=== PATIENT | male | born 1980 | race Caucasian/White ===

== ENCOUNTER 2019-04-01 19:18 | Inpatient (IN) | payer MEDICAID ==
[~2019-04-01] VITALS: Ht 177.8 cm; Wt 83.9 kg
[2019-04-01 19:58] VITALS: BP 141/92
[2019-04-01 20:03] LABS: HEMATOCRIT 46.3 % (42.0-54.0); HEMOGLOBIN 16.8 g/dL (13.5-17.5); MCH 30.2 pg (26.0-34.0); MCHC 36.3 g/dL (31.0-37.0); MCV 83.1 fL (80.0-100.0); MEAN PLATELET VOLUME 10.7 fL (7.4-10.4); PLATELET COUNT 343 10x3/uL (130-400); RBC 5.57 10x6/uL (4.20-6.10); RDW 13.6 % (11.5-14.5); WBC 24.3 10x3/uL (4.8-10.8)
[2019-04-01 20:11] LABS: ALBUMIN 3.9 g/dL (3.4-5.0); ALKALINE PHOSPHATASE 125 U/L (46-116); ALT (SGPT) 109 U/L (10-68); BILIRUBIN - TOTAL 2.17 mg/dL (0.2-1.3); CALC OSMOLALITY 288 mosm/kg (275-300); CALCIUM 8.8 mg/dL (8.5-10.1); CARBON DIOXIDE 28.4 mmol/L (21.0-32.0); CHLORIDE - SERUM 105 mmol/L (98-107); CREATININE - SERUM 1.1 mg/dL (0.6-1.3); GLUCOSE 127 mg/dL (74-106); POTASSIUM - SERUM 3.5 mmol/L (3.5-5.1); PROTEIN - SERUM 7.4 g/dL (6.4-8.2); SODIUM 144 mmol/L (136-145); UREA NITROGEN 12 mg/dL (7-18); eGFR NON AFRICAN AMERICAN 79 mL/min (90-120)
[2019-04-01 20:14] LABS: TROPONIN-I < 0.017 ng/mL (0.000-0.060)
[2019-04-01 20:30] LABS: AMYLASE - SERUM 4763 U/L (25-115); LIPASE 18596 U/L (73-393)
[2019-04-01 20:42] VITALS: BP 144/100
[2019-04-01 21:00] LABS: LYMPHOCYTES 7 % (15-50); MONOCYTES 4 % (2-11); NEUTROPHILS 89 % (40-80); PLATELET ESTIMATE NORMAL
[2019-04-01 22:13] VITALS: BP 167/92
--- NOTE | 2019-04-01 22:47 | NUR ---
URINE SENT TO LAB
--- NOTE | 2019-04-01 22:47 | NUR ---
FAMILY CONTACT INFORMATION: ANKITA FLORES: [phone] PARK FLORES: [phone]
[2019-04-01 22:56] LABS: APPEARANCE CLEAR (CLEAR); BILIRUBIN NEGATIVE (NEGATIVE); COLOR YELLOW (YELLOW); GLUCOSE NEGATIVE (NEGATIVE); KETONE NEGATIVE (NEGATIVE); NITRITE NEGATIVE (NEGATIVE); PROTEIN NEGATIVE (NEGATIVE); SPECIFIC GRAVITY 1.005 (1.005-1.020); UROBILINOGEN NORMAL (NORMAL)
[2019-04-02] VITALS (7 sets, daily range): BP systolic 118–195; BP diastolic 67–101; BMI 26.6
[2019-04-02 05:18] LABS: BASOPHILS 0.1 % (0-2); EOSINOPHILS 0 % (0-7); HEMATOCRIT 46.2 % (42.0-54.0); IMMATURE GRANULOCYTES 0.3 % (0-5); LYMPHOCYTES 4.7 % (15-50); MCH 29.5 pg (26.0-34.0); MCHC 34.6 g/dL (31.0-37.0); MCV 85.1 fL (80.0-100.0); MEAN PLATELET VOLUME 11.1 fL (7.4-10.4); NEUTROPHILS 88.9 % (40-80); PLATELET COUNT 270 10x3/uL (130-400); RBC 5.43 10x6/uL (4.20-6.10); WBC 15.6 10x3/uL (4.8-10.8)
[2019-04-02 05:34] LABS: ALBUMIN 3.6 g/dL (3.4-5.0); ALKALINE PHOSPHATASE 115 U/L (46-116); ALT (SGPT) 99 U/L (10-68); BILIRUBIN - TOTAL 0.65 mg/dL (0.2-1.3); CALC OSMOLALITY 283 mosm/kg (275-300); CALCIUM 8.6 mg/dL (8.5-10.1); CARBON DIOXIDE 28.2 mmol/L (21.0-32.0); CHLORIDE - SERUM 105 mmol/L (98-107); GLUCOSE 146 mg/dL (74-106); SODIUM 141 mmol/L (136-145); UREA NITROGEN 12 mg/dL (7-18); eGFR NON AFRICAN AMERICAN 88 mL/min (90-120)
[2019-04-02 05:36] LABS: LIPASE 5380 U/L (73-393)
[2019-04-02 05:39] LABS: AMYLASE - SERUM 1030 U/L (25-115)
--- NOTE | 2019-04-02 08:00 | NUR ---
PT RESTING QUIETLY IN BED. REPORTS PAIN 10/10 AT THIS TIME. PAIN MEDICATION TO BE ADMINISTERED PER MD ORDERS. VOICING ABDOMINAL TENDERNESS AND BELOW RIGHT RIB CAGE. DENIES NAUSEA AT THIS TIME. IV TO LEFT AC WITH NS @ 250ML/HR INFUSING VIA PUMP. SITE WITHOUT REDNESS OR EDEMA. DENIES FURTHER NEEDS AT THIS TIME. CL WITHIN REACH. ENCOURAGED TO CALL WITH NEEDS. CONTINUE POC
[2019-04-02 13:13] LABS: CHOL - HDL RATIO 2.7 ratio (2.3-4.9); LDL-HDL RATIO 1.5 ratio (1.5-3.5)
[2019-04-02 23:51] LABS: UDS - AMPHET NEGATIVE QUAL (NEGATIVE); UDS - BARB NEGATIVE QUAL (NEGATIVE); UDS - BENZO NEGATIVE QUAL (NEGATIVE); UDS - COCAINE NEGATIVE QUAL (NEGATIVE); UDS - OPIATE POSITIVE QUAL (NEGATIVE); UDS - PCP NEGATIVE QUAL (NEGATIVE); UDS - THC POSITIVE QUAL (NEGATIVE)
--- NOTE | 2019-04-03 00:11 | NUR ---
PATIENT IN BED RESTING WITH NO NEEDS NOTED OR STATED AT THIS TIME HE IS ALERT AND ORENTED ABLE TO VOICE NEEDS AND WANTS TO STAFF.REMAINS NPO PER ORDERS. IV TO LEFT AC WITH NS AT 250ML/HR AND DIDAUDID PLASTER MACHINE OPERATOR PER ORDERS.CALL LIGHT IN REACH BED LOW CHECKED OFTEN FOR NEED AND SAFETY.
[2019-04-03 05:29] LABS: BASOPHILS 0.1 % (0-2); EOSINOPHILS 0.2 % (0-7); HEMATOCRIT 41.9 % (42.0-54.0); HEMOGLOBIN 14.3 g/dL (13.5-17.5); IMMATURE GRANULOCYTES 0.4 % (0-5); LYMPHOCYTES 6.1 % (15-50); MCH 29.3 pg (26.0-34.0); MCHC 34.1 g/dL (31.0-37.0); MCV 85.9 fL (80.0-100.0); MEAN PLATELET VOLUME 11.1 fL (7.4-10.4); MONOCYTES 8.6 % (2-11); NEUTROPHILS 84.6 % (40-80); PLATELET COUNT 225 10x3/uL (130-400); RBC 4.88 10x6/uL (4.20-6.10); RDW 13.9 % (11.5-14.5)
[2019-04-03 05:45] VITALS: BP 170/96
[2019-04-03 05:53] LABS: WBC 19.6 10x3/uL (4.8-10.8)
[2019-04-03 06:15] LABS: ALBUMIN 3.1 g/dL (3.4-5.0); ALKALINE PHOSPHATASE 87 U/L (46-116); BILIRUBIN - TOTAL 0.98 mg/dL (0.2-1.3); CALCIUM 8.8 mg/dL (8.5-10.1); CARBON DIOXIDE 27.3 mmol/L (21.0-32.0); CHLORIDE - SERUM 103 mmol/L (98-107); CREATININE - SERUM 0.9 mg/dL (0.6-1.3); LIPASE 1321 U/L (73-393); POTASSIUM - SERUM 4.4 mmol/L (3.5-5.1); PROTEIN - SERUM 6.4 g/dL (6.4-8.2); SODIUM 137 mmol/L (136-145); eGFR NON AFRICAN AMERICAN > 90 mL/min (90-120)
[2019-04-03 06:16] LABS: ALT (SGPT) 53 U/L (10-68); CALC OSMOLALITY 271 mosm/kg (275-300); GLUCOSE 95 mg/dL (74-106); UREA NITROGEN 6 mg/dL (7-18)
[2019-04-03 06:17] LABS: AMYLASE - SERUM 318 U/L (25-115)
--- NOTE | 2019-04-03 08:09 | NUR ---
PT IS RESTING IN BED WITH EYES CLOSED. RESPIRATIONS ARE EVEN AND UNLABORED. PT IS EASILY AROUSED WITH VERBAL STIMULATION. PT REPORTS STEVEN TO ABDOMEN. REGISTRATION SCHEDULING SPECIALIST DILAUDID IS AVAILABLE. PT DENIES PRESENCE OF N/V. BED IS IN THE LOWEST POSITION. CALL LIGHT AND BEDSIDE TABLE ARE WITHIN REACHH. SIDE RAILS X 2. PT DENIES FURTHER NEEDS. WILL CONT TO MONITOR.
--- NOTE | 2019-04-03 09:24 | NUR ---
PT TRANSPORTED FROM ROOM VIA BED BY HOSPITAL STAFF FOR PROCEDURE
[2019-04-03 09:39] VITALS: BP 169/93
--- NOTE | 2019-04-03 13:48 | NUR ---
PT AWAKENING, OPA REMOVED
[2019-04-03 14:52] VITALS: BP 148/86
--- NOTE | 2019-04-03 14:55 | NUR ---
PT ARRIVES TO ROOM VIA BED TRANSPORTED BY RECOVERY NURSE ALTON. PT IS AAO X 4. LAP SITES WITH LARGE BANDAIDES OVER X 5 TO ABDOMEN. PT DENIES PRESENCE OF PAIN AT THIS TIME. VSS. SEE FLOWSHEET. BED IS IN THE LOWEST POSITION. CALL LIGHT AND BEDSIDE TABLE ARE WITHIN REACH. SIDE RAILS X 2. PT DENIES FURTHER NEEDS. WILL CONT TO MONITOR.
--- NOTE | 2019-04-03 16:14 | MORECARE ---
CASE MANAGEMENT DISCHARGE SUMMARY PATIENT: ANKITA FLORES JR UNIT: [id number] ADM DATE: 04/01/19 AGE: 38 : 76 SEX: M ROOM/BED: D.2206 AUTHOR: MIGUEL GUZMÁN PHYSICIAN: REFERRING PHYSICIAN: KEAGAN TRACEY MD DATE OF SERVICE: 04/03/19 Discharge Plan Patient Name: ANKITA FLORES Facility: [facility]:[place] : 1980 Planned Disposition: Home or Self Care Anticipated Discharge Date: Discharge Date: Expected LOS: Initial Reviewer: [email or web address] Initial Review Date: 04/02/2019 Generated: 04/03/19 5:14 pm Comments DCP- Discharge Planning Updated by [email or web address]: Luz Maria Jennings on 04/03/19 3:[address] Patient Name: ANKITA FLORES Admission Status: ER Accout number: [id number] Admission Date: 04-01-2019 : 1980 Admission Diagnosis: Attending: KEAGAN TRACEY Current LOS: 2 Anticipated DC Date: Planned Disposition: Home or Self Care Primary Insurance: MEDICAID [place] PEND[place] Discharge Planning Comments: CM met with patient to complete initial dc planning assessment. CM educated patient on the CM role and verbal consent given by patient to complete assessment. Patient lives at home with his father where he is independent with his care. At discharge patient plans to return home and feels this is a safe discharge. his dad will be his special client bus driver home. CM discussed availability of home health, rehab services, and medical equipment. Patient denied known discharge needs at this time. CM will continue to follow and will assist as needed with dc plans/needs. Drop Count Associate: Luz Maria Jennings DCPIA - Discharge Planning Initial Assessment Updated by [email or web address]: Luz Maria Jennings on 04/03/19 4:09 pm * Is the patient Alert and Oriented? Yes * How many steps to enter\exit or inside your home? * PCP NONE * Pharmacy [facility] * Preadmission Environment Home with Family * ADLs Independent * Equipment None * List name and contact numbers for known caregivers / representatives who currently or will assist patient after discharge: ANKITA (DAD) [phone] * Verbal permission to speak to the caregivers and representatives has been obtained from the patient. N/A * Community resources currently utilized None * Additional services required to return to the preadmission environment? No * Can the patient safely return to the preadmission environment? Yes * Has this patient been hospitalized within the prior 30 days at any hospital? No Patient Name: ANKITA FLORES Page [phone] at 1614 All edits/amendments must be made on the electronic document DICTATION DATE: 04/03/191613 CUSTOMER ACCOUNT EXECUTIVE: JUANCHO 04/03/191613 RPT#: [id number] DC DATE: STATUS: ADM IN [facility] [address] [place] [address] END OF REPORT
--- NOTE | 2019-04-03 16:48 | NUR ---
AIRCRAFT MAGNETO MECHANIC NUPUR RETURNED TO PT PER OK FROM DR LY.
[2019-04-03 17:23] VITALS: BP 154/98
--- NOTE | 2019-04-03 17:59 | NUR ---
PT WITH ELEVATED BP. SEE FLOWSHEET. DR TRACEY NOTIFIED. NO NEW ORDERS RCD AT THIS TIME. WILL CONT TO MONITOR.
--- NOTE | 2019-04-03 19:49 | NUR ---
PATIENT IN BED WITH NO S/S OF DISTRESS IV TO LEFT AC WITH NS AT 250ML/HR. DILADID SPEECH PATHOLOGY SUPERVISOR IN PLACE PER ORDERS. PATIENT IS AWAKE ALERT AND ORENTED ABLE TO VOICE NEEDS AND WANTS TO STAFF. CALL LIGHT AND WATER IN REACH, BED LOW.
[2019-04-03 21:10] VITALS: BP 167/94
[2019-04-04 04:57] LABS: BASOPHILS 0 % (0-2); EOSINOPHILS 0 % (0-7); HEMATOCRIT 38.2 % (42.0-54.0); HEMOGLOBIN 13.1 g/dL (13.5-17.5); IMMATURE GRANULOCYTES 0.1 % (0-5); LYMPHOCYTES 6.5 % (15-50); MCH 29.2 pg (26.0-34.0); MCHC 34.3 g/dL (31.0-37.0); MCV 85.3 fL (80.0-100.0); MEAN PLATELET VOLUME 10.6 fL (7.4-10.4); MONOCYTES 8.7 % (2-11); NEUTROPHILS 84.7 % (40-80); PLATELET COUNT 210 10x3/uL (130-400); RBC 4.48 10x6/uL (4.20-6.10); RDW 13.9 % (11.5-14.5); WBC 16.1 10x3/uL (4.8-10.8)
[2019-04-04 05:11] LABS: ALBUMIN 2.6 g/dL (3.4-5.0); ALKALINE PHOSPHATASE 79 U/L (46-116); ALT (SGPT) 98 U/L (10-68); AMYLASE - SERUM 108 U/L (25-115); BILIRUBIN - TOTAL 0.54 mg/dL (0.2-1.3); CALC OSMOLALITY 282 mosm/kg (275-300); CALCIUM 8.3 mg/dL (8.5-10.1); CARBON DIOXIDE 30.4 mmol/L (21.0-32.0); CHLORIDE - SERUM 105 mmol/L (98-107); CREATININE - SERUM 0.8 mg/dL (0.6-1.3); GLUCOSE 127 mg/dL (74-106); LIPASE 339 U/L (73-393); POTASSIUM - SERUM 3.7 mmol/L (3.5-5.1); PROTEIN - SERUM 6.2 g/dL (6.4-8.2); SODIUM 142 mmol/L (136-145); UREA NITROGEN 6 mg/dL (7-18); eGFR NON AFRICAN AMERICAN > 90 mL/min (90-120)
[2019-04-04 05:38] VITALS: BP 184/80
--- NOTE | 2019-04-04 07:20 | NUR ---
ALERT AND ORIENTED, RESTING IN BED. NO C/O PAIN, DILAUDID TRACE EVIDENCE TECHNICIAN MANAGING PAIN. NO S/S OF ACUTE DISTRESS NOTED. POD #1 LAP EDILBERTO, SITES C/D/I. SCDS PRESENT. IV TO LEFT AC, NS INFUSING @ 250ML/HR. SITE PATENT WITHOUT REDNESS OR SWELLING. PT DENIES ANY NEEDS. CALL LIGHT IN REACH. WILL CONTINUE TO MONITOR.
[2019-04-04 09:28] VITALS: Ht 177.8 cm; Wt 83.9 kg
[2019-04-04 09:40] VITALS: BP 164/92
--- NOTE | 2019-04-04 12:04 | NUR ---
I have reviewed this patient and I concur with the Shift Assessment completed by the Licensed Practical Nurse today this shift.
[2019-04-04 13:03] VITALS: BP 166/100
[2019-04-04 16:24] VITALS: BP 183/104
--- NOTE | 2019-04-04 18:40 | NUR ---
ALERT AND ORIENTED. FAMILY AT BEDSIDE. PT DENIES ANY NEEDS. CALL LIGHT IN REACH. WCTM.
--- NOTE | 2019-04-04 19:40 | NUR ---
AMBULATORY IN ROOM, REPORTS PAIN OF 8/10. A&O X 4. DENIES NAUSEA AT THIS TIME. ABDOMEN APPEARS DISTENDED, BOWELS SOUNDS ACTIVE X 4. REQUESTS ICE WATER, DENIES CURRENT NEEDS AT THIS TIME. WILL CONTINUE TO MONITOR.
[2019-04-04 20:26] VITALS: BP 160/94
[2019-04-05 00:48] VITALS: BP 129/77
--- NOTE | 2019-04-05 03:00 | NUR ---
I have reviewed this patient and I concur with the Shift Assessment completed by the Licensed Practical Nurse today this shift.
[2019-04-05 05:17] VITALS: BP 147/96
[2019-04-05 06:46] LABS: BASOPHILS 0.1 % (0-2); EOSINOPHILS 0.3 % (0-7); HEMATOCRIT 39.5 % (42.0-54.0); HEMOGLOBIN 13.4 g/dL (13.5-17.5); IMMATURE GRANULOCYTES 0.3 % (0-5); LYMPHOCYTES 8.4 % (15-50); MCH 29.3 pg (26.0-34.0); MCHC 33.9 g/dL (31.0-37.0); MCV 86.4 fL (80.0-100.0); MEAN PLATELET VOLUME 10.9 fL (7.4-10.4); MONOCYTES 7.6 % (2-11); NEUTROPHILS 83.3 % (40-80); RBC 4.57 10x6/uL (4.20-6.10); RDW 14.1 % (11.5-14.5)
[2019-04-05 07:04] LABS: PLATELET COUNT 265 10x3/uL (130-400)
[2019-04-05 07:13] LABS: ALBUMIN 2.6 g/dL (3.4-5.0); ALKALINE PHOSPHATASE 111 U/L (46-116); ALT (SGPT) 85 U/L (10-68); BILIRUBIN - TOTAL 0.69 mg/dL (0.2-1.3); CALC OSMOLALITY 273 mosm/kg (275-300); CALCIUM 8.5 mg/dL (8.5-10.1); CARBON DIOXIDE 30.4 mmol/L (21.0-32.0); CHLORIDE - SERUM 100 mmol/L (98-107); CREATININE - SERUM 0.8 mg/dL (0.6-1.3); GLUCOSE 97 mg/dL (74-106); LIPASE 216 U/L (73-393); POTASSIUM - SERUM 3.4 mmol/L (3.5-5.1); PROTEIN - SERUM 6.5 g/dL (6.4-8.2); SODIUM 138 mmol/L (136-145); UREA NITROGEN 6 mg/dL (7-18); eGFR NON AFRICAN AMERICAN > 90 mL/min (90-120)
[2019-04-05 07:14] LABS: AMYLASE - SERUM 62 U/L (25-115)
--- NOTE | 2019-04-05 07:30 | NUR ---
ALERT AND ORIENTED, RESTING IN BED. C/O PAIN, GAVE NORCO 7.5MG. NO S/S OF ACUTE DISTRESS NOTED. IV TO LEFT AC, NS INFUSING @ 75ML/HR. SITE PATENT WITHOUT REDNESS OR SWELLING. ON TELEMETRY 94 SR. POTASSIUM 3.4 THIS AM, GAVE 40 MEQ POTASSIUM PER PROTOCOL. PT DENIES ANY NEEDS AT THIS TIME. CALL LIGHT IN REACH. WILL CONTINUE TO MONITOR.
[2019-04-05 08:08] VITALS: BP 144/79
[2019-04-05 12:24] VITALS: BP 150/73
--- NOTE | 2019-04-05 14:58 | NUR ---
I have reviewed this patient and I concur with the Shift Assessment completed by the Licensed Practical Nurse today this shift.
[2019-04-05 17:24] VITALS: BP 140/71
--- NOTE | 2019-04-05 18:32 | NUR ---
ALERT AND ORIENTED, RESTING IN BED. NO C/O PAIN. NO S/S OF ACUTE DISTRESS NOTED. PT DENIES ANY NEEDS AT THIS TIME. CALL LIGHT IN REACH. WILL CONTINUE TO MONITOR.
--- NOTE | 2019-04-05 20:00 | NUR ---
ALERT RESTING IN BED, REPORTS PAIN TO ABD WORSE SINCE NICOTINE PATCH PUT ON SO HE REMOVED IT, SEE SHIFT ASSESSMENT, CALL LIGHT IN REACH
[2019-04-05 20:58] VITALS: BP 161/92
[2019-04-06 00:48] VITALS: BP 154/96
[2019-04-06 05:24] VITALS: BP 166/94
[2019-04-06 05:46] LABS: BASOPHILS 0.1 % (0-2); EOSINOPHILS 0.9 % (0-7); HEMATOCRIT 38.5 % (42.0-54.0); HEMOGLOBIN 11.1 g/dL (13.5-17.5); IMMATURE GRANULOCYTES 0.6 % (0-5); MCH 24.7 pg (26.0-34.0); MCHC 28.8 g/dL (31.0-37.0); MCV 85.7 fL (80.0-100.0); MEAN PLATELET VOLUME 10.6 fL (7.4-10.4); MONOCYTES 10.8 % (2-11); NEUTROPHILS 76.6 % (40-80); RBC 4.49 10x6/uL (4.20-6.10); RDW 13.8 % (11.5-14.5); WBC 12.4 10x3/uL (4.8-10.8)
[2019-04-06 06:02] LABS: ALBUMIN 2.5 g/dL (3.4-5.0); ALKALINE PHOSPHATASE 129 U/L (46-116); BILIRUBIN - TOTAL 0.74 mg/dL (0.2-1.3); CALCIUM 8.7 mg/dL (8.5-10.1); CARBON DIOXIDE 26.3 mmol/L (21.0-32.0); CHLORIDE - SERUM 101 mmol/L (98-107); CREATININE - SERUM 0.7 mg/dL (0.6-1.3); GLUCOSE 84 mg/dL (74-106); LIPASE 104 U/L (73-393); POTASSIUM - SERUM 3.3 mmol/L (3.5-5.1); PROTEIN - SERUM 6.1 g/dL (6.4-8.2); SODIUM 138 mmol/L (136-145); eGFR NON AFRICAN AMERICAN > 90 mL/min (90-120)
[2019-04-06 06:03] LABS: ALT (SGPT) 63 U/L (10-68); AMYLASE - SERUM 39 U/L (25-115); CALC OSMOLALITY 271 mosm/kg (275-300); UREA NITROGEN 4 mg/dL (7-18)
[2019-04-06 06:09] LABS: PLATELET COUNT 184 10x3/uL (130-400)
--- NOTE | 2019-04-06 07:45 | NUR ---
PT RESTING IN BED WATCHING TV. NO ACUTE DISTRESS NOTED. LAP SITES X 4 TO ABDOMEN, COVERED WITH BANDAIDS, NO REDNESS OR DRAINAGE NOTED. IV TO RIGHT AC WITH NS @ 30 ML/HR INFUSING VIA PUMPT. SITE WITHOUT REDNESS OR EDEMA. DENIES FURTHER NEEDS AT THIS TIME. CL WITHIN REACH. ENCOURAGED TO CALL WITH NEEDS. CONTINUE POC
[2019-04-06 08:34] VITALS: BP 154/98
[2019-04-06 12:14] VITALS: BP 143/89
[2019-04-06 17:04] VITALS: BP 148/96
[2019-04-06 20:00] VITALS: BP 155/83
--- NOTE | 2019-04-06 20:00 | NUR ---
ALERT SITTING UP IN BED, REQUESTING DILAUDID FOR PAIN, GIVEN ORDERED, SEE SHIFT ASSESSMENT, CALL LIGHT IN REACH
--- NOTE | 2019-04-06 21:30 | NUR ---
AMBULATING IN [facility]
[2019-04-07] VITALS: BP 150/90
[2019-04-07 04:00] VITALS: BP 167/78
[2019-04-07 06:42] LABS: BASOPHILS 0 % (0-2); EOSINOPHILS 0.9 % (0-7); HEMATOCRIT 36.8 % (42.0-54.0); HEMOGLOBIN 12.9 g/dL (13.5-17.5); IMMATURE GRANULOCYTES 0.3 % (0-5); LYMPHOCYTES 10.2 % (15-50); MCH 29.5 pg (26.0-34.0); MCHC 35.1 g/dL (31.0-37.0); MEAN PLATELET VOLUME 10.5 fL (7.4-10.4); MONOCYTES 10.1 % (2-11); NEUTROPHILS 78.5 % (40-80); RBC 4.38 10x6/uL (4.20-6.10); RDW 13.6 % (11.5-14.5); WBC 10.5 10x3/uL (4.8-10.8)
[2019-04-07 06:46] LABS: PLATELET COUNT 314 10x3/uL (130-400)
[2019-04-07 07:06] LABS: ALBUMIN 2.6 g/dL (3.4-5.0); ALKALINE PHOSPHATASE 149 U/L (46-116); ALT (SGPT) 62 U/L (10-68); AMYLASE - SERUM 38 U/L (25-115); BILIRUBIN - TOTAL 0.48 mg/dL (0.2-1.3); CALC OSMOLALITY 275 mosm/kg (275-300); CALCIUM 8.8 mg/dL (8.5-10.1); CARBON DIOXIDE 31.6 mmol/L (21.0-32.0); CHLORIDE - SERUM 102 mmol/L (98-107); CREATININE - SERUM 0.8 mg/dL (0.6-1.3); GLUCOSE 99 mg/dL (74-106); LIPASE 154 U/L (73-393); MAGNESIUM - SERUM 1.6 mg/dL (1.8-2.4); POTASSIUM - SERUM 3.2 mmol/L (3.5-5.1); PROTEIN - SERUM 5.7 g/dL (6.4-8.2); SODIUM 140 mmol/L (136-145); UREA NITROGEN 3 mg/dL (7-18); eGFR NON AFRICAN AMERICAN > 90 mL/min (90-120)
--- NOTE | 2019-04-07 08:10 | NUR ---
PT UP AMBULATING IN ROOM. NO ACUTE DISTRESS NOTED AT THIS TIME. PT REPORTS HE FEELS BETTER TODAY AND VOICING MORE OF AN APPETITE. REPORTS PAIN 6/10 AT THIS TIME. IV TO RIGHT AC WITH NS @ 30ML/HR INFUSING VIA PUMP. SITE WITHOUT REDNESS OR EDEMA. LAP SITES X 5 TO ABDOMEN, COVERED WITH BANDAIDS NO DRAINAGE OR REDNESS TO AREAS. DENIES FURTHER NEEDS AT THIS TIME. CL WITHIN REACH. ENCOURAGED TO CALL WITH NEEDS. CONTINUE POC
[2019-04-07 08:55] VITALS: BP 159/91
--- NOTE | 2019-04-07 09:18 | NUR ---
Nutrition follow-up: Pt s/p lap darling and liver biopsy Diet advanced to regular as tolerated PO intake ~40% average of last 4 meals Labs reviewed Wt: 185# +BM Will continue to provide food choices and honor food preferences. will offer nutritional supplements. RDN following.
[2019-04-07 12:27] VITALS: BP 142/92
[2019-04-07] MEDS ORDERED: PROTONIX40 MG PO (14:38)
[2019-04-07] MEDS ORDERED: LISINOPRIL10 MG PO (14:38)
[2019-04-07] MEDS ORDERED: Nicoderm [PBKC] TRANSDERM (14:38)
[2019-04-07] MEDS ORDERED: DIFLUCAN150 MG PO (14:39)
--- NOTE | 2019-04-07 14:43 | MORECARE ---
CASE MANAGEMENT DISCHARGE SUMMARY PATIENT: ANKITA FLORES JR UNIT: [id number] ADM DATE: 04/01/19 AGE: 38 : [birth year] SEX: M ROOM/BED: D.2206 AUTHOR: MIGUEL GUZMÁN PHYSICIAN: REFERRING PHYSICIAN: KEAGAN TRACEY MD DATE OF SERVICE: 04/07/19 Discharge Plan Patient Name: ANKITA FLORES Facility: [facility]:[place] : 1980 Planned Disposition: Home or Self Care Anticipated Discharge Date: Discharge Date: Expected LOS: Initial Reviewer: [email or web address] Initial Review Date: 04/02/2019 Generated: 04/07/19 3:43 pm Comments DCP- Discharge Planning Updated by [email or web address]: Dipti Henry on 04/07/19 1:[address] Patient Name: ANKITA FLORES Encounter No: [id number] : 1980 Primary Insurance: MEDICAID [place] PENDING Anticipated DC Date: Planned Disposition: Home or Self Care External Planned Provider: : DCP follow-up note: Patient and family in agreement with discharge plan. No changes to plan. Case management will follow and assist as needed. Dipti Henry DCP- Discharge Planning Updated by [email or web address]: Luz Maria Jennings on 04/03/19 3:[address] Patient Name: ANKITA FLORES Admission Status: ER Accout number: [id number] Admission Date: 04-01-2019 : 1980 Admission Diagnosis: Attending: KEAGAN TRACEY Current LOS: 2 Anticipated DC Date: Planned Disposition: Home or Self Care Primary Insurance: MEDICAID [place] PENDING Discharge Planning Comments: CM met with patient to complete initial dc planning assessment. CM educated patient on the CM role and verbal consent given by patient to complete assessment. Patient lives at home with his father where he is independent with his care. At discharge patient plans to return home and feels this is a safe discharge. his dad will be his high lift driver home. CM discussed availability of home health, rehab services, and medical equipment. Patient denied known discharge needs at this time. CM will continue to follow and will assist as needed with dc plans/needs. Cad Cam Programmer: Luz Maria Jennings DCPIA - Discharge Planning Initial Assessment Updated by [email or web address]: Luz Maria Jennings on 04/03/19 4:09 pm * Is the patient Alert and Oriented? Yes * How many steps to enter\exit or inside your home? * PCP NONE * Pharmacy [facility] * Preadmission Environment Home with Family * ADLs Independent * Equipment None * List name and contact numbers for known caregivers / representatives who currently or will assist patient after discharge: ANKITA (DAD) [phone] * Verbal permission to speak to the caregivers and representatives has been obtained from the patient. N/A * Community resources currently utilized None * Additional services required to return to the preadmission environment? No * Can the patient safely return to the preadmission environment? Yes * Has this patient been hospitalized within the prior 30 days at any hospital? No Last DP export: 04/03/19 3:14 p Patient Name: ANKITA FLORES Page 36042 at 1443 All edits/amendments must be made on the electronic document DICTATION DATE: 04/07/19 144 CORPORATE DEVELOPMENT ASSOCIATE: JUANCHO 04/07/19 1443 RPT#: [id number] DC DATE: STATUS: ADM IN [facility] [address] [place] [address] END OF REPORT
[2019-04-07] MEDS ORDERED: HYDROCODON-ACE1 EAC7 PO (14:52)
[2019-04-07] MEDS ORDERED: COLACE100 MG PO (14:53)
--- NOTE | 2019-04-08 12:59 | MORECARE ---
CASE MANAGEMENT DISCHARGE SUMMARY PATIENT: ANKITA FLORES JR UNIT: [id number] ADM DATE: 04/01/19 AGE: 38 : 76 SEX: M ROOM/BED: D.2206 AUTHOR: MIGUEL GUZMÁN PHYSICIAN: REFERRING PHYSICIAN: KEAGAN TRACEY MD DATE OF SERVICE: 04/08/19 Discharge Plan Patient Name: ANKITA FLORES Facility: [facility]:[place] : 1980 Planned Disposition: Home or Self Care Anticipated Discharge Date: Discharge Date: 04/07/2019 Expected LOS: 0 Initial Reviewer: [email or web address] Initial Review Date: 04/02/2019 Generated: 04/08/19 1:58 pm Comments DCP- Discharge Planning Updated by [email or web address]: Dipti Henry on 04/07/19 1:[address] Patient Name: ANKITA FLORES Encounter No: [id number] : 1980 Primary Insurance: MEDICAID [place] PEND[place] Anticipated DC Date: Planned Disposition: Home or Self Care External Planned Provider: : DCP follow-up note: Patient and family in agreement with discharge plan. No changes to plan. Case management will follow and assist as needed. Dipti Henry DCP- Discharge Planning Updated by [email or web address]: Luz Maria Jennings on 04/03/19 3:[address] Patient Name: ANKITA FLORES Admission Status: ER Accout number: [id number] Admission Date: 04-01-2019 : 1980 Admission Diagnosis: Attending: KEAGAN TRACEY Current LOS: 2 Anticipated DC Date: Planned Disposition: Home or Self Care Primary Insurance: MEDICAID [place] PEND[place] Discharge Planning Comments: CM met with patient to complete initial dc planning assessment. CM educated patient on the CM role and verbal consent given by patient to complete assessment. Patient lives at home with his father where he is independent with his care. At discharge patient plans to return home and feels this is a safe discharge. his dad will be his limousine driver home. CM discussed availability of home health, rehab services, and medical equipment. Patient denied known discharge needs at this time. CM will continue to follow and will assist as needed with dc plans/needs. Solar Engineer: Luz Maria Jennings DCPIA - Discharge Planning Initial Assessment Updated by [email or web address]: Luz Maria Jennings on 04/03/19 4:09 pm * Is the patient Alert and Oriented? Yes * How many steps to enter\exit or inside your home? * PCP NONE * Pharmacy [facility] * Preadmission Environment Home with Family * ADLs Independent * Equipment None * List name and contact numbers for known caregivers / representatives who currently or will assist patient after discharge: ANKITA (DAD) [phone] * Verbal permission to speak to the caregivers and representatives has been obtained from the patient. N/A * Community resources currently utilized None * Additional services required to return to the preadmission environment? No * Can the patient safely return to the preadmission environment? Yes * Has this patient been hospitalized within the prior 30 days at any hospital? No Last DP export: 04/07/19 1:43 pm Patient Name: ANKITA FLORES Page 80303 at 1259 All edits/amendments must be made on the electronic document DICTATION DATE: 04/08/19 1258 STATION INSPECTOR: JUANCHO 04/08/19 1258 RPT#: [id number] DC DATE:04/07/19 STATUS: DIS IN [facility] [address] [place] [address] END OF REPORT
--- NOTE | 2019-04-08 17:33 | OP ---
PATIENT NAME: ANKITA FLORES JR MEDICAL RECORD: [id number] :[birth year] LOCATION:D.MS [address]6 ADMISSION DATE:04/01/19 SURGEON: ROX LY MD DATE OF OPERATION: 04/03/2019 PREOPERATIVE DIAGNOSES: Gallstone pancreatitis. POST OPERATIVE DIAGNOSIS: !. Gallstone pancreatitis. 2. Hepatomegaly. PROCEDURES: 1. Laparoscopic cholecystectomy. 2. Intraoperative cholangiography without immediate surgeon interpretation. 3. 14-gauge core needle liver biopsies. SURGEON: Rox Ly MD AIR CONDITIONING COIL ASSEMBLER: Dr. Nacho Doshi. DRAINS: None. BLOOD LOSS: 100 cc. The risks, possible complications and alternatives to the procedure were explained to the patient. He elects to proceed. Dr. Nacho Doshi was present for the cholecystectomy part of the operative procedure and also for the cholangiogram, but not for the liver biopsy. OPERATIVE COURSE: The patient was conveyed to the operating room electively on 04/03/2019. General anesthesia was induced by the anesthesia staff. The abdomen was sterilely prepped and draped. A small skin tamanna was accomplished in the left upper quadrant. Veress needle was inserted through the skin tamanna into the peritoneal cavity. CO2 insufflation was begun. Once a sufficient pneumoperitoneum had been achieved, a 5-mm trocar was inserted through an incision in the right upper quadrant. Under direct internal vision utilizing television camera, a 12-mm trocar was inserted through an incision at the umbilicus. Another 5-mm trocar was inserted through an incision in the left upper quadrant and another 5-mm trocar was inserted through an incision far laterally in the right upper quadrant. During insertion of the Veress needle and all trocars, there appeared to have been no injury to the bowels, any intraperitoneal or retroperitoneal structures. Under laparoscopic guidance, I percutaneously accessed the right upper quadrant with a 14-gauge core biopsy device. Cores were obtained over the convexity of the liver. Biopsy sites were made hemostatic with the electrocautery. I then advanced a cholangiogram trocar. I punctured the fundus of the gallbladder. I aspirated bile. I then injected dye. Real-time cholangiographic images were obtained. These were sent to the radiologist for interpretation and the radiologist did call me back in the room and stated that there was no choledocholithiasis. The cystic duct was clipped multiple and divided between clips. The cystic OPERATIVE REPORT [id number] FLORESANKITA DIALLO artery was clipped multiple and divided between clips. The gallbladder was excised from its bed in the liver. It was placed within a bag retrieval device and was withdrawn through the umbilical fascia defect. I had to place a 12-mm trocar in the left upper quadrant to apply large clips across a very thick cystic duct. Anyhow upon further examination, it appeared that there may have been a common bile duct injury. I placed a Lelia retractor just to the right of the xiphoid process and I elevated the liver in the right upper quadrant. I began to perform some dissection of what appeared to be the cystic duct as well as what might be the common bile duct. I asked my partner, Dr. Nacho Doshi, to assist me. He came and was of invaluable help. He was able to identify the cystic artery and the cystic duct. Through the cystic duct, he advanced a cholangiogram catheter and performed an intraoperative cholangiogram, which revealed no common bile duct injury. He clipped the cystic duct. He then left. So, he performed the last cholangiogram as well as some dissection around the common bile duct and then departed. The Cordell-Ian suture closure device and 0 Vicryl sutures were used to close the umbilical fascia defect. A topical hemostatic agent was added to the gallbladder fossa for additional hemostasis. The rest of the trocars were removed including the Lelia retractor. This skin at the umbilicus was closed with interrupted 4-0 Vicryl Rapide sutures. The other skin incisions were closed with interrupted intracuticular 3-0 Vicryls. Benzoin and Steri-Strips were applied. The patient was then extubated and conveyed to post-anesthesia care unit where he was in stable condition. TRANSINT:[id number] Voice Confirmation ID: [id number] DOCUMENT ID: [id number] 04/05/2019 Edited for market research senior project manager error, dmm. ROX LY MD at 1733 CC: KEAGAN TRACEY MD and NACHO DOSHI [id number] DICTATION DATE: 04/03/19 1429 SHOW HORSE DRIVER: 04/03/19 1519 DIS IN 04/07/19 [id number] [place] [address]
== END 2019-04-07 16:06 | disposition home or self-care (01) | DRG 418 ==
LOC: D.ER 19:18 → D.MS 22:55
PROVIDERS: Family Medicine; Surgery; ADMIT Internal Medicine Nephrology; ATTEND Internal Medicine Nephrology
PROC: BF03YZZ Plain Radiography of Gallbladder and Bile Ducts using Other Contrast (ICD-10-PCS; 2019-04-03)
PROC: 0FT44ZZ Resection of Gallbladder, Percutaneous Endoscopic Approach (ICD-10-PCS; principal; 2019-04-03 09:15)
PROC: 0FB04ZX Excision of Liver, Percutaneous Endoscopic Approach, Diagnostic (ICD-10-PCS; 2019-04-03 09:15)
DX: K85.10 Biliary acute pancreatitis without necrosis or infection (principal); F17.203 Nicotine dependence unspecified, with withdrawal; Q60.0 Renal agenesis, unilateral; K81.1 Chronic cholecystitis; F12.90 Cannabis use, unspecified, uncomplicated; R16.0 Hepatomegaly, not elsewhere classified